=== PATIENT | male | born 1995 | race Caucasian/White ===

== ENCOUNTER 2021-12-10 17:57 | Emergency (ER) | payer BC ==
[2021-12-10 18:24] VITALS: BP 119/74; PULSE 85; RESP 16; TEMP 98.8; BMI 21.2
== END 2021-12-10 18:46 | disposition home or self-care (01) ==
LOC: FER 17:57
DX: S09.90XA Unspecified injury of head, initial encounter (principal); W20.8XXA Other cause of strike by thrown, projected or falling object, initial encounter
CPT/HCPCS: 99281-25

== ENCOUNTER 2022-01-03 16:43 | Emergency (ER) | payer BC ==
[2022-01-03 16:58] VITALS: BP 116/71; PULSE 72; RESP 18; TEMP 97.7; BMI 21.2
== END 2022-01-03 17:57 | disposition home or self-care (01) ==
LOC: FER 16:43
DX: S06.0X0A Concussion without loss of consciousness, initial encounter (principal); W22.8XXA Striking against or struck by other objects, initial encounter
CPT/HCPCS: 99281-25